=== PATIENT | female | born 1990 | race Caucasian/White ===

== ENCOUNTER 2016-12-04 06:58 | Observation (INO) | payer MEDICAID ==
[~2016-12-04 06:58] MED LIST: LR 1,000 ML IV ONE; PHENAZOPYRIDINE HCL 200 MG TAB PO ONE; ceFAZolin 2 GM/DEXTROSE 100 ML IV ONE
[2016-12-04] MEDS ORDERED: LR 1,000 ML IV ONE (07:40)
[2016-12-04] MEDS ORDERED: BUPIVACAINE/EPI 0.5% 30 ML SDV ONE (08:09)
[2016-12-04] MEDS ORDERED: SKIN ADHESIVE (DERMABOND) 1 EACH TP ONE (08:09)
[2016-12-04] MEDS ORDERED: fentaNYL 250 MCG/5 ML INJ ONE (09:01)
[2016-12-04] MEDS ORDERED: PROPOFOL 200 MG/20 ML VIAL ONE (09:01)
[2016-12-04] MEDS ORDERED: MIDAZOLAM 2 MG/2 ML VIAL ONE (10:02)
[2016-12-04] MEDS ORDERED: SCOPOLAMINE HYDROBROMIDE 1.5 MG PATCH TD ONE (10:02)
[2016-12-04] MEDS ORDERED: SCOPOLAMINE HYDROBROMIDE 1.5 MG PATCH TD PRN (12:37)
[2016-12-04] MEDS ORDERED: ONDANSETRON 4 MG/2 ML VIAL IVP PRN (12:37)
--- NOTE | 2016-12-04 12:41 | POSTOPPROG ---
Post Op Note Date of Operation: 12/04/16 Surgeon: Ej Kwong Rn [facility]ospice: [facility] Anesthesia: GET(General Endotracheal) Pre-op Diagnosis: Endometriosis Post-op Diagnosis: Same Procedure: Robotic excision of endo, bilat ureterolysis, ovarian pexy, cysto Findings: Endo Inf/Abcess present in the surg proc area at time of surgery?: No EBL: Minimal Complications: None
[2016-12-04] MEDS ORDERED: LR 1,000 ML IV SCH (13:00)
[2016-12-04] MEDS ORDERED: fentaNYL 100 MCG/2 ML INJ ONE (13:05)
--- NOTE | 2016-12-04 13:57 | GOP ---
[f rep st] OPERATIVE REPORT DATE OF OPERATION: 12/04/2016 SURGEON: Ej Kwong MD PROOF CARRIER: [facility]y Garcia CFA. ANESTHESIA: General. PREOPERATIVE DIAGNOSIS: 1. Endometriosis. 2. Pelvic pain. 3. Vaginal vault prolapse. POSTOPERATIVE DIAGNOSIS: 1. Endometriosis. 2. Pelvic pain. 3. Vaginal vault prolapse. PROCEDURE PERFORMED: 1. Robotic excision of extensive endometriosis in posterior and anterior cul-de-sacs, as well as bi lateral ovarian fossae. 2. Bilateral ureterolysis. 3. Bilateral uterosacral ligament colpopexy. 4. Bilateral ovarian pexy. 5. Excision of rectal lesion. 6. Cystoscopy. FINDINGS: SPECIMENS: 1. Pelvic peritoneum with endometriosis. 1. Rectal lesion. 2. ESTIMATED BLOOD LOSS: 20 mL. DESCRIPTION OF PROCEDURE: The patient was taken to the operating room. She was identified. Genera l anesthesia was administered and found to be adequate. She was placed in the lithotomy position an d prepared and draped in normal sterile fashion. A Campos catheter was placed in her bladder. A 1 cm infraumbilical incision was made with the scalpel. The Veress needle with the CO2 gas flowin g was advanced into the peritoneal cavity. The abdomen was then insufflated with carbon dioxide gas . The 12 mm trocar, followed by the laparoscope, was then inserted. The upper abdomen was unremark able. There was no evidence of endometriosis on either diaphragm, liver, stomach or upper abdominal bowel. Two lateral ports were placed in the right and 1 on the left under direct visualization. S he then was placed in Trendelenburg position and the da Adi robot docked on the left side. The in struments were then brought into the abdominal cavity under direct visualization. The patient had p art of her sigmoid colon adherent to the left ovary. This was taken down sharply. She had multiple lesions of endometriosis throughout the posterior cul-de-sac, anterior cul-de-sac a s well as the bilateral ovarian fossas overlying both ureters. As a result, a bilateral ureterolysi s was required. The several lesions on the rectum were then excised. This extended approximately 5 0% through the muscularis on the deepest lesion. The entire posterior cul-de-sac peritoneum was exc ised from the distal rectum up to the vaginal cuff and laterally to the uterosacral ligaments. The anterior cul-de-sac likewise was completely excised from the bladder completely over the vaginal cuf f. Attention was then turned to the left ureter. The pelvic peritoneum at the pelvic brim was incised. The ureter was gently dissected free. The ureter was lateralized all the way down to the bladder to separate the ureter from the overlying peritoneum and endometriosis. Once this was accomplished, the entire ovarian fossa peritoneum was completely excised. The exact same procedure was performed on the patient's right side, also requiring a ureterolysis. Several lesions on each ovary were fulgurated. A bilateral ovarian pexy was performed by attaching the ovaries to their ipsilateral round ligaments near their internal inguinal ring. A bilateral gracie rosacral ligament colpopexy was performed by attaching the lateral aspects of the vaginal cuff to th e ipsilateral uterosacral ligaments near their insertion into the coccygeus sacrospinous ligament co mplexes. The pelvis was then copiously irrigated with sterile saline and hemostasis was present. One sheet o f Interceed was placed around the vaginal cuff to try to limit postoperative adhesion formation. Th e robot was then undocked. The fascia was closed with Vicryl, skin with 4-0 Monocryl and surgical a dhesive. Cystoscopy was then performed. Both ureters had vigorous jets of urine. There was no evidence of b ladder nor urethral injury seen. No mesh was seen within the bladder nor urethra. No sutures were seen either. Anesthesia was reversed and the patient taken to the PACU awake and in stable conditio n. COMPLICATIONS: None. DISPOSITION: Patient stable to PACU. /[id number]/MODL
[2016-12-04] MEDS ORDERED: NON-FORMULARY NEW DRUG (Omeprazole [Omeprazole] 40 MG) PO SCH (16:00)
[2016-12-04] MEDS: HYDROCODONE/APAP 5/325 TAB PO PRN ×2 (16:29→20:29)
[2016-12-04] MEDS: PANTOPRAZOLE SODIUM 40 MG TAB PO SCH (17:56)
[2016-12-04] MEDS: KETOROLAC 30 MG/1 ML SDV IVP SCH ×2 (17:57→23:57)
[2016-12-04] MEDS ORDERED: NON-FORMULARY NEW DRUG (Ranitidine Hcl [Ranitidine Hcl] 300 MG) PO SCH (21:00)
[2016-12-04] MEDS ORDERED: NORTRIPTYLINE HCL 50 MG CAP PO SCH (21:00)
[2016-12-04] MEDS: FAMOTIDINE 20 MG TAB PO SCH (22:25)
[2016-12-05] MEDS: HYDROCODONE/APAP 5/325 TAB PO PRN ×2 (01:38→07:17)
[2016-12-05] MEDS: KETOROLAC 30 MG/1 ML SDV IVP SCH ×2 (06:03→11:44)
[2016-12-05 07:37] VITALS: BP 97/64; PULSE 53; RESP 15; TEMP 97; O2SAT 97
[2016-12-05] MEDS ORDERED: HYDROmorphONE/DILAUDID 2 MG TAB PO PRN (09:10)
[2016-12-05] MEDS: FAMOTIDINE 20 MG TAB PO SCH (09:55)
[2016-12-05] MEDS: PANTOPRAZOLE SODIUM 40 MG TAB PO SCH (09:55)
[2016-12-05] MEDS ORDERED: DOCUSATE SODIUM 100 MG CAP PO SCH (10:00)
--- NOTE | 2016-12-05 10:14 | GDS ---
[f rep st] DISCHARGE SUMMARY DISCHARGE DIAGNOSES: 1. Endometriosis. 2. Pelvic pain. PROCEDURES: 1. Robotic excision of extensive endometriosis. 2. Bilateral ureterolysis. 3. Bilateral uterosacral ligament colpopexy. 4. Bilateral ovarian pexy. 5. Excision of rectal lesion. 6. Cystoscopy. HISTORY: The patient is a 26-year-old woman with a long history of pelvic pain secondary to endomet riosis. She was taken to the operating room on 12/04/2016, where she underwent the above-mentioned procedures, which were tolerated well. Her postoperative course was relatively uneventful. The morning after surgery she was ambulating, v oiding, and tolerating a general diet. She was discharged home on postoperative day #1 in good cond ition. MEDICATIONS: Dilaudid 2 mg tablets, and ibuprofen for pain. PLAN: She was to follow up in the office 2 weeks after discharge. /[id number]/MODL
[2016-12-07] MEDS ORDERED: ESTRADIOL 0.025 MG PATCH TD SCH (08:00)
--- NOTE | 2016-12-30 17:28 | GPROG ---
[f rep st] PROGRESS NOTE POSTANESTHESIA NOTE Patient's anesthetic record has been reviewed and there were no anesthetic complications. /[id number]/MODL
== END 2016-12-05 11:55 | disposition home or self-care (01) ==
LOC: F3N 06:58 → F3E 08:17 → FOB 14:16
PROVIDERS: ADMIT Obstetrics & Gynecology; ATTEND Obstetrics & Gynecology
PROC: 0UB24ZZ Excision of Bilateral Ovaries, Percutaneous Endoscopic Approach (ICD-10-PCS; principal; 2016-12-04 09:45)
PROC: 8E0WXCZ Robotic Assisted Procedure of Trunk Region (ICD-10-PCS; principal; 2016-12-04 09:45)
PROC: 0UBF4ZZ Excision of Cul-de-sac, Percutaneous Endoscopic Approach (ICD-10-PCS; principal; 2016-12-04 09:45)
PROC: 0USG4ZZ Reposition Vagina, Percutaneous Endoscopic Approach (ICD-10-PCS; principal; 2016-12-04 09:45)
DX: N80.0 Endometriosis of uterus (principal); N80.1 Endometriosis of ovary; N39.3 Stress incontinence (female) (male); F41.8 Other specified anxiety disorders; K21.9 Gastro-esophageal reflux disease without esophagitis
CPT/HCPCS: 57425; 58662; C1765; G0378; J0690; J1885; J2250; J2704; J3010